=== PATIENT | male | born 1975 | race Caucasian/White ===

== ENCOUNTER 2016-12-14 00:14 | Emergency (ER) | payer OTHER ==
[~2016-12-14 00:14] MED LIST: BENICAR40 PO; CHOLESTEROL MED PO; COREG25 PO; GLUCOV5 PO; HCTZ25B PO; LANTUS SC; LOPID6 PO; PROAIR HFA INH; SPIRO25 PO; TOPXL50 PO; TRIDERM0.1 % T; ZOCOR40 PO
== END 2016-12-14 01:33 | disposition home or self-care (01) ==
LOC: ER 00:14
DX: R07.89 Other chest pain (principal); F17.200 Nicotine dependence, unspecified, uncomplicated; I11.0 Hypertensive heart disease with heart failure; I50.9 Heart failure, unspecified; E11.9 Type 2 diabetes mellitus without complications; Z88.0 Allergy status to penicillin; Z79.4 Long term (current) use of insulin; Z79.899 Other long term (current) drug therapy; W19.XXXA Unspecified fall, initial encounter
CPT/HCPCS: 71020; 71100-LT; 93005; 99285; A9270-GY